=== PATIENT | female | born 1985 | race American Indian/Alaskan Native ===

== ENCOUNTER 2020-10-12 04:11 | Emergency (ER) | payer SELFPAY ==
[2020-10-12 05:42] VITALS: BP 139/78
--- NOTE | 2020-10-12 07:23 | Emergency Department Report ---
ED General Adult HPI - General Chief complaint: Extremity Injury, Lower Stated complaint: FOOT PAIN Time Seen by Provider: 10/12/20 06:42 Source: patient Mode of arrival: Ambulatory Limitations: No Limitations - History of Present Illness Initial comments: 35-year-old F [place] female [facility] emerge department complaining of a 4 to 5- week history of progressively worsening rash to her left foot which is pruritic and has vague pain from unknown etiology states she is been wearing her boot and has been having some increased moisture as well. She has tried to use some [id number] home home remedies but have been unsuccessful. She reports no trauma reports no fever, chills, sweats. No known history of any diabetes no polydipsia no no polyuria. Patient states she [facility] and was advised to come to the ED for further treatment. -: Gradual - Related Data Previous Rx's Medication Instructions Recorded Last Taken Type Amoxicillin [Trimox CAP] 500 mg PO Q8H #20 capsule 03/26/18 Unknown Rx Nystatin [Nystatin SUSP] 5 ml PO QID #200 ml 03/26/18 Unknown Rx Ciclopirox 0.77% (Nf) [Loprox 1 applic TP BID #45 tube 10/12/20 Unknown Rx 0.77% (Nf)] Fluconazole [Diflucan TAB] 200 mg PO QWEEK #4 tablet 10/12/20 Unknown Rx cephALEXin [Keflex] 500 mg PO Q6HR #40 cap 10/12/20 Unknown Rx Allergies Allergy/AdvReac Type Severity Reaction Status Date / Time No Known Allergies Allergy Unverified 03/26/18 13:25 ED Review of Systems ROS: Stated complaint: FOOT PAIN Other details as noted in HPI Comment: All other systems reviewed and negative ED Past Medical Hx - Past Medical History Previous Medical History?: No - Surgical History Past Surgical History?: No - Social History Smoking Status: Current Every Day Smoker Substance Use Type: None - Medications Home Medications: Home Medications Medication Instructions Recorded Confirmed Last Taken Type Amoxicillin [Trimox CAP] 500 mg PO Q8H #20 capsule 03/26/18 Unknown Rx Nystatin [Nystatin SUSP] 5 ml PO QID #200 ml 03/26/18 Unknown Rx Ciclopirox 0.77% (Nf) [Loprox 1 applic TP BID #45 tube 10/12/20 Unknown Rx 0.77% (Nf)] Fluconazole [Diflucan TAB] 200 mg PO QWEEK #4 tablet 10/12/20 Unknown Rx cephALEXin [Keflex] 500 mg PO Q6HR #40 cap 10/12/20 Unknown Rx ED Physical Exam - General Limitations: No Limitations General appearance: alert, in no apparent distress - Head Head exam: Present: atraumatic, normocephalic - Eye Eye exam: Present: normal appearance - ENT ENT exam: Present: mucous membranes moist - Neck Neck exam: Present: normal inspection - Respiratory Respiratory exam: Present: normal lung sounds bilaterally. Absent: respiratory distress - Cardiovascular Cardiovascular Exam: Present: regular rate, normal rhythm. Absent: systolic murmur, diastolic murmur, rubs, gallop - GI/Abdominal GI/Abdominal exam: Present: soft, normal bowel sounds - Extremities Exam Extremities exam: Present: normal inspection - Expanded Lower Extremity Exam Left Foot/Toe exam: Present: tenderness. Absent: laceration, ecchymosis 1 - Scaly excoriated hyper pigmented fungal rash to this region 2 - Increased area of redness to this region. No lymphangitis. - Back Exam Back exam: Present: normal inspection - Neurological Exam Neurological exam: Present: alert, oriented X3, CN II-XII intact, normal gait - Psychiatric Psychiatric exam: Present: normal affect, normal mood - Skin Skin exam: Present: warm, dry, intact, normal color. Absent: rash ED Course Vital Signs 10/12/20 04:26 Temperature 98.6 F Pulse Rate 91 H Respiratory 18 Rate Blood Pressure 139/78 O2 Sat by Pulse 100 Oximetry Critical care attestation.: If time is entered above; I have spent that time in minutes in the direct care of this critically ill patient, excluding procedure time. ED Disposition Clinical Impression: Foot and toe(s), blister, infected, Tinea pedis of left foot Disposition: DC-01 TO HOME OR SELFCARE Is pt being admited?: No Does the pt Need Aspirin: No Condition: Stable Instructions: Athlete's Foot, [id number], Blisters, Adult Prescriptions: Fluconazole [Diflucan TAB] 200 mg PO QWEEK #4 tablet cephALEXin [Keflex] 500 mg PO Q6HR #40 cap Ciclopirox 0.77% (Nf) [Loprox 0.77% (Nf)] 1 applic TP BID #45 tube Referrals: [facility] [Provider Group] - 3-5 Days
== END 2020-10-12 07:36 | disposition home or self-care (01) ==
LOC: ED 04:11
DX: S90.822A Blister (nonthermal), left foot, initial encounter (principal); L08.9 Local infection of the skin and subcutaneous tissue, unspecified; B35.3 Tinea pedis; F17.200 Nicotine dependence, unspecified, uncomplicated; Z79.2 Long term (current) use of antibiotics; Z79.899 Other long term (current) drug therapy; X58.XXXA Exposure to other specified factors, initial encounter; Y93.89 Activity, other specified; Y92.89 Other specified places as the place of occurrence of the external cause; Y99.8 Other external cause status